=== PATIENT | female | born 1945 | race Caucasian/White ===

== ENCOUNTER → 2021-10-11 11:36 | Outpatient (BNVA) | payer MEDICARE, SELFPAY | PROVIDERS: Family Provider Electrodiagnostic Medicine; PCP Electrodiagnostic Medicine; Visit Provider Emergency Medicine | DX: R39.9 Unspecified symptoms and signs involving the genitourinary system (principal); N39.0 Urinary tract infection, site not specified; B95.2 Enterococcus as the cause of diseases classified elsewhere | CPT/HCPCS: 81000 ==

== ENCOUNTER 2021-11-17 15:03 | Outpatient (CLI) | payer MEDICARE, SELFPAY ==
--- NOTE | 2021-11-17 15:00 | XR_ITS ---
WS: [id number] XR KUB 40603 REASON FOR EXAM: uti, due to enterococcus FINDINGS: Multiple large calculi including partial staghorn calculus in the left kidney. There does not appear to have been significant interval change in these calculi compared to previous examinations of 12/27/19 18 and 12/26/2018. Left kidney appears somewhat small. No other urinary tract calculi are identified. No other significant abdominal or pelvic abnormality is noted. XR/XR KUB 79053 IMPRESSION: Stable left renal calculi as above.
== END 2021-11-17 15:04 | disposition home or self-care (01) ==
LOC: RAD 15:03
PROVIDERS: Family Provider Electrodiagnostic Medicine; PCP Electrodiagnostic Medicine; Visit Provider Nurse Practitioner Family
DX: N39.0 Urinary tract infection, site not specified (principal); B95.2 Enterococcus as the cause of diseases classified elsewhere; N20.0 Calculus of kidney
CPT/HCPCS: 74018; 81003; 87077; 87086; 87186; 99213

== ENCOUNTER → 2022-01-04 10:11 | Outpatient (BNVA) | payer MEDICARE, SELFPAY | PROVIDERS: Family Provider Electrodiagnostic Medicine; PCP Electrodiagnostic Medicine; Visit Provider Urology | DX: N39.0 Urinary tract infection, site not specified (principal); N20.0 Calculus of kidney | CPT/HCPCS: 81003; 99213 ==

== ENCOUNTER → 2022-03-29 13:56 | Outpatient (BNVA) | payer MEDICARE, OTHER, SELFPAY | PROVIDERS: Family Provider Electrodiagnostic Medicine; PCP Electrodiagnostic Medicine; Visit Provider Urology | DX: N20.0 Calculus of kidney (principal); N39.0 Urinary tract infection, site not specified; B95.2 Enterococcus as the cause of diseases classified elsewhere; R33.9 Retention of urine, unspecified | CPT/HCPCS: 81003; 87086; 99213 ==

== ENCOUNTER → 2022-08-02 15:18 | Outpatient (BNVA) | payer MEDICARE, OTHER, SELFPAY | PROVIDERS: Family Provider Electrodiagnostic Medicine; PCP Electrodiagnostic Medicine; Visit Provider Urology | DX: Z87.440 Personal history of urinary (tract) infections (principal); N20.0 Calculus of kidney; R33.9 Retention of urine, unspecified | CPT/HCPCS: 81003; 99213 ==

== ENCOUNTER → 2023-06-01 15:14 | Outpatient (BNVA) | payer MEDICARE, SELFPAY | PROVIDERS: Family Provider Electrodiagnostic Medicine; PCP Electrodiagnostic Medicine; Visit Provider Nurse Practitioner Family | DX: Z85.828 Personal history of other malignant neoplasm of skin (principal); L82.0 Inflamed seborrheic keratosis; L23.9 Allergic contact dermatitis, unspecified cause; L57.0 Actinic keratosis; L82.1 Other seborrheic keratosis; L57.8 Other skin changes due to chronic exposure to nonionizing radiation; D22.4 Melanocytic nevi of scalp and neck; L81.4 Other melanin hyperpigmentation | CPT/HCPCS: 17000; 99214 ==

== ENCOUNTER → 2023-08-03 14:21 | Outpatient (BNVA) | payer MEDICARE, OTHER, SELFPAY | PROVIDERS: Family Provider Electrodiagnostic Medicine; PCP Electrodiagnostic Medicine; Visit Provider Nurse Practitioner Family | DX: S80.921A Unspecified superficial injury of right lower leg, initial encounter (principal); X58.XXXA Exposure to other specified factors, initial encounter; L23.9 Allergic contact dermatitis, unspecified cause; L57.8 Other skin changes due to chronic exposure to nonionizing radiation; D22.4 Melanocytic nevi of scalp and neck | CPT/HCPCS: 99214 ==